=== PATIENT | male | born 1995 | race Caucasian/White ===

== ENCOUNTER 2018-08-10 23:31 | Emergency (ER) | payer MEDICAID, BC ==
[2018-08-11] MEDS: KETOROLAC 60 MG INJ IM (01:52)
== END 2018-08-11 02:11 | disposition home or self-care (01) ==
LOC: FTE 23:31
DX: S39.012A Strain of muscle, fascia and tendon of lower back, initial encounter (principal); X58.XXXA Exposure to other specified factors, initial encounter; Y92.9 Unspecified place or not applicable
CPT/HCPCS: 96372; 99284-25